=== PATIENT | female | born 1950 | race Caucasian/White ===

== ENCOUNTER 2020-12-25 18:11 | Emergency (ER) | payer OTHER ==
[2020-12-25 18:43] LABS: HEMOGLOBIN 12.8 gm/dl (12.3-15.3); RED BLOOD COUNT 4.74 M/UL (4.00-5.10); WHITE BLOOD COUNT 5.5 K/UL (4.5-11.0)
[2020-12-25 19:08] LABS: BUN/CREATININE RATIO 13 (0-10)
== END 2020-12-27 10:45 | disposition short-term general hospital (02) ==
LOC: ER1 18:11
PROVIDERS: Preventive Medicine Occupational Medicine
DX: R44.1 Visual hallucinations (principal); Z20.822 Contact with and (suspected) exposure to COVID-19
CPT/HCPCS: 36600; 70450; 71045; 80053; 80307; 81001; 82140; 82550; 82553; 82803; 83605; 83690; 83874; 83880; 84484; 85025; 85610; 85652; 85730; 86140; 87086; 93005; 94760; 99285; G0480; J2060; U0002